=== PATIENT | male | born 1975 | race Caucasian/White ===

== ENCOUNTER → 2018-06-30 16:46 | Outpatient (CLI) | payer OTHER, SELFPAY ==
[2018-06-30 18:17] LABS: C-Reactive Protein Quant 7.3 mg/dL (<1.0)
[2018-06-30 18:22] LABS: Erythrocyte Sedimentation Rate 8 MM/HR (0-15)
== END ==
PROVIDERS: Visit Provider Physician Assistant
DX: R51 Headache (principal)
CPT/HCPCS: 36415; 85651; 86140

== ENCOUNTER 2022-11-08 13:24 | Emergency (ER) | payer OTHER, SELFPAY ==
[2022-11-08 13:31] VITALS: BP 162/98; PULSE 81; RESP 18; TEMP 37.1; O2SAT 94
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
[2022-11-08 13:47] VITALS: BMI 36.2
[2022-11-08] MEDS: LIDOCAINE PATCH 1 EACH ADH..PATCH TOP (13:50)
[2022-11-08] MEDS: ACETAMINOPHEN 325 MG TABLET 975 MG PO (13:51)
[2022-11-08] MEDS: KETOROLAC 30 MG/ML VIAL IM (13:52)
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
[2022-11-08 14:35] VITALS: BP 155/89; PULSE 72; RESP 16; O2SAT 95
== END 2022-11-08 14:36 | disposition home or self-care (01) ==
PROVIDERS: Emergency Provider Nurse Practitioner Critical Care Medicine
DX: S39.92XA Unspecified injury of lower back, initial encounter (principal); V89.2XXA Person injured in unspecified motor-vehicle accident, traffic, initial encounter; Y99.0 Civilian activity done for income or pay
CPT/HCPCS: 72072; 96372; 99283; 99284; J1885

== ENCOUNTER → 2024-09-01 10:39 | Outpatient (CLI) | payer OTHER, SELFPAY ==
[2024-09-01 11:27] LABS: Influenza A - CEPHEID Flu A NEGATIVE (NEGATIVE); Influenza B - CEPHEID Flu B POSITIVE (NEGATIVE); Respiratory Syncytial Virus Negative (Negative)
[2024-09-01 11:44] LABS: COVID-19 CEPHEID 4-PLEX PCR Negative (Negative)
== END ==
PROVIDERS: Visit Provider Physician Assistant
DX: Z20.828 Contact with and (suspected) exposure to other viral communicable diseases (principal)
CPT/HCPCS: 0241U